=== PATIENT | male | born 2000 | race Caucasian/White ===

== ENCOUNTER → 2021-10-06 | Outpatient (REF) | payer OTHER | LOC: M LAB REF 16:10 | PROVIDERS: ATTEND Physician Assistant | DX: J02.9 Acute pharyngitis, unspecified (principal) ==

== ENCOUNTER → 2022-05-06 | Outpatient (REF) | payer OTHER ==
[2022-05-06 17:26] LABS: BASO % 0.3 % (0.0-1.0); EOS # 0.1 10^3/uL (0.0-0.5); EOS % 1.3 % (0.0-3.0); HEMATOCRIT 46.9 % (42.0-52.0); HEMOGLOBIN 15.8 g/dl (13.5-17.5); LYMPH # 2.5 10^3/uL (1.5-5.0); MEAN CORPUSCULAR HEMOGLOBIN 28.9 pg (27.0-33.0); MEAN CORPUSCULAR HGB CONC 33.7 g/dl (32.0-36.5); MEAN CORPUSCULAR VOLUME 85.7 fl (80.0-96.0); MONO # 0.5 10^3/uL (0.0-0.8); MONO % 4.9 % (2.0-8.0); NEUTROPHILS # 6.5 10^3/uL (1.5-8.5); NEUTROPHILS % 67.2 % (36.0-66.0); PLATELET COUNT, AUTOMATED 297 10^3/uL (150-450); RED BLOOD COUNT 5.47 10^6/uL (4.30-6.10); WHITE BLOOD COUNT 9.7 10^3/uL (4.0-10.0)
[2022-05-06 17:55] LABS: ALBUMIN 4.4 G/DL (3.2-5.2); ALKALINE PHOSPHATASE 90 U/L (46-116); ALT/SGPT 31 U/L (7.0-40); AST/SGOT 24 U/L (<34); BILIRUBIN,TOTAL 0.4 MG/DL (0.3-1.2); BLOOD UREA NITROGEN 18 MG/DL (9-23); CALCIUM LEVEL 9.6 MG/DL (8.5-10.1); CARBON DIOXIDE LEVEL 27 MMOL/L (20-31); CHLORIDE LEVEL 101 MMOL/L (98-107); CREATININE FOR GFR 0.83 MG/DL (0.70-1.30); GLUCOSE, FASTING 85 MG/DL (60-100); POTASSIUM SERUM 4.4 MMOL/L (3.5-5.1); SODIUM LEVEL 137 MMOL/L (136-145); THYROID STIMULATING HORMONE 3.121 uIU/ML (0.48-4.17); TOTAL PROTEIN 7.8 G/DL (5.7-8.2)
== END ==
LOC: M SFHCCAPE 14:08
PROVIDERS: ATTEND Physician Assistant
DX: F41.1 Generalized anxiety disorder (principal)

== ENCOUNTER → 2022-08-30 | Outpatient (REF) | payer OTHER ==
[2022-08-30 18:05] LABS: BASO % 0.7 % (0.0-1.0); EOS # 0.2 10^3/uL (0.0-0.5); EOS % 2.8 % (0.0-3.0); HEMATOCRIT 48.7 % (42.0-52.0); HEMOGLOBIN 15.6 g/dl (13.5-17.5); LYMPH % 35.2 % (24.0-44.0); MEAN CORPUSCULAR VOLUME 87.4 fl (80.0-96.0); MONO # 0.4 10^3/uL (0.0-0.8); MONO % 6.7 % (2.0-8.0); NEUTROPHILS # 3.1 10^3/uL (1.5-8.5); NEUTROPHILS % 54.3 % (36.0-66.0); PLATELET COUNT, AUTOMATED 258 10^3/uL (150-450); RED BLOOD COUNT 5.57 10^6/uL (4.30-6.10); WHITE BLOOD COUNT 5.8 10^3/uL (4.0-10.0)
[2022-08-30 18:35] LABS: ALBUMIN 4.2 G/DL (3.2-5.2); ALKALINE PHOSPHATASE 90 U/L (46-116); ALT/SGPT 36 U/L (7.0-40); AST/SGOT 19 U/L (<34); BILIRUBIN,TOTAL 0.3 MG/DL (0.3-1.2); BLOOD UREA NITROGEN 18 MG/DL (9-23); CALCIUM LEVEL 9.6 MG/DL (8.5-10.1); CARBON DIOXIDE LEVEL 30 MMOL/L (20-31); CHLORIDE LEVEL 104 MMOL/L (98-107); CREATININE FOR GFR 1.19 MG/DL (0.70-1.30); GLUCOSE, FASTING 99 MG/DL (60-100); POTASSIUM SERUM 5.1 MMOL/L (3.5-5.1); SODIUM LEVEL 141 MMOL/L (136-145); TOTAL PROTEIN 7.4 G/DL (5.7-8.2)
== END ==
LOC: M LABDRAWC 17:22
DX: G40.109 Localization-related (focal) (partial) symptomatic epilepsy and epileptic syndromes with simple partial seizures, not intractable, without status epilepticus (principal)

== ENCOUNTER → 2024-06-18 | Outpatient (REF) | payer BC ==
[2024-06-18 12:55] LABS: BASO % 0.7 % (0.0-1.0); EOS # 0.1 10^3/uL (0.0-0.5); EOS % 1.1 % (0.0-3.0); HEMOGLOBIN 15.5 g/dl (13.5-17.5); LYMPH # 2.1 10^3/uL (1.5-5.0); LYMPH % 38.5 % (24.0-44.0); MEAN CORPUSCULAR HGB CONC 33.7 g/dl (32.0-36.5); MEAN CORPUSCULAR VOLUME 86.1 fl (80.0-96.0); MONO # 0.4 10^3/uL (0.0-0.8); MONO % 7.5 % (2.0-8.0); NEUTROPHILS # 2.9 10^3/uL (1.5-8.5); PLATELET COUNT, AUTOMATED 234 10^3/uL (150-450); RED BLOOD COUNT 5.34 10^6/uL (4.30-6.10); WHITE BLOOD COUNT 5.5 10^3/uL (4.0-10.0)
[2024-06-18 13:44] LABS: ALBUMIN 4.4 G/DL (3.2-5.2); ALKALINE PHOSPHATASE 71 U/L (40-129); ALT/SGPT 28 U/L (7.0-40); AST/SGOT 23 U/L (<34); BILIRUBIN,TOTAL 0.6 MG/DL (0.3-1.2); BLOOD UREA NITROGEN 16 MG/DL (9-23); CALCIUM LEVEL 9.6 MG/DL (8.5-10.1); CARBON DIOXIDE LEVEL 28 MMOL/L (20-31); CHLORIDE LEVEL 104 MMOL/L (98-107); CHOLESTEROL LEVEL 143 MG/DL (<200); CHOLESTEROL RISK RATIO 2.27 (<5); CREATININE FOR GFR 1.08 MG/DL (0.70-1.30); GLOMERULAR FILTRATION RATE > 90.0 (>60); GLUCOSE, FASTING 104 MG/DL (60-100); HDL CHOLESTEROL 62.9 MG/DL (>40); LDL CHOLESTEROL 63.7 MG/DL (<100); NON-HDL-C 80.1 MG/DL; POTASSIUM SERUM 4.5 MMOL/L (3.5-5.1); SODIUM LEVEL 141 MMOL/L (136-145); THYROID STIMULATING HORMONE 3.223 uIU/ML (0.55-4.78); TOTAL PROTEIN 7.7 G/DL (5.7-8.2); TRIGLYCERIDES LEVEL 82 MG/DL (<150)
== END ==
LOC: M SFHCCLAY 09:32
DX: F41.1 Generalized anxiety disorder (principal); R41.840 Attention and concentration deficit